=== PATIENT | male | born 1990 | race African-American/Black ===

== ENCOUNTER 2024-02-09 15:06 | Emergency (ER) | payer OTHER ==
[~2024-02-09] VITALS: Ht 175.3 cm; Wt 75.7 kg
[2024-02-09 15:24] VITALS: O2SAT 100
[2024-02-09 17:07] VITALS: BP 125/83; PULSE 57; RESP 16; TEMP 98.6
== END 2024-02-09 17:10 | disposition home or self-care (01) ==
LOC: ER 15:06
DX: M65.4 Radial styloid tenosynovitis [de Quervain] (principal); S76.012A Strain of muscle, fascia and tendon of left hip, initial encounter; Z98.890 Other specified postprocedural states; X58.XXXA Exposure to other specified factors, initial encounter; Y93.89 Activity, other specified; Y92.89 Other specified places as the place of occurrence of the external cause; Y99.8 Other external cause status
CPT/HCPCS: 73502; 99283